=== PATIENT | female | born 1975 | race Caucasian/White ===

== ENCOUNTER 2018-12-19 05:37 | Observation (INO) | payer BC ==
[2018-12-19] MEDS ORDERED: LR 1,000 ML IV ONE (06:13)
[2018-12-19] MEDS ORDERED: ACETAMINOPHEN 500 MG TAB PO PRN ×2 (07:07→18:38)
[2018-12-19] MEDS ORDERED: MIDAZOLAM 2 MG/2 ML VIAL IVP ONE (07:07)
[2018-12-19] MEDS ORDERED: NALOXONE HCL 0.4 MG/ML INJ IVP PRN ×2 (07:07)
[2018-12-19] MEDS ORDERED: DEXAMETHASONE 4 MG/ML VIAL IVP PRN (07:07)
[2018-12-19] MEDS ORDERED: oxyCODONE IR 5 MG TAB PO PRN (07:07)
[2018-12-19] MEDS ORDERED: ONDANSETRON 4 MG/2 ML VIAL IVP PRN ×2 (07:07)
[2018-12-19] MEDS ORDERED: ALBUTEROL 3 ML DEYVIAL IH PRN (07:07)
--- NOTE | 2018-12-19 07:08 | PDANEPAE ---
ANE History of Present Illness TVH ANE Past Medical History - Cardiovascular History Hx Hypertension: No Hx Arrhythmias: No Hx Chest Pain: No Hx Coronary Artery / Peripheral Vascular Disease: No Hx CHF / Valvular Disease: No Hx Palpitations: No - Pulmonary History Hx COPD: No Hx Asthma/Reactive Airway Disease: No Hx Recent Upper Respiratory Infection: No Hx Oxygen in Use at Home: No Hx Sleep Apnea: No Sleep Apnea Screening Result - Last Documented: Negative - Neurologic History Hx Cerebrovascular Accident: No Hx Seizures: No Hx Dementia: No - Endocrine History Hx Diabetes: No Endocrine History Comment: RECENT DX HYPOTHYROID. TO ADDRESS POST SURGERY - Renal History Hx Renal Disorders: Yes Renal History Comment: PROLAPSED BLADDER. WITH SOME LEAKAGE - Liver History Hx Hepatic Disorders: No - Neurological & Psychiatric Hx Hx Neurological and Psychiatric Disorders: No - Cancer History Hx Cancer: No - Congenital Disorder History Hx Congenital Disorders: No - GI History Hx Gastrointestinal Disorders: No - Other Health History Other Health History: UTERINE FIBROID. DYSMENORRHEA - Chronic Pain History Chronic Pain: Yes (ABDOMEN) - Surgical History Prior Surgeries: DIAG LAP REMVL OF OVARIAN CYSTS. TONSILLECTOMY. . WISDOM TEETH ANE Review of Systems Review of Systems: - Exercise capacity METS (RN): 5 METS ANE Patient History - Allergies Allergies/Adverse Reactions: Sulfa (Sulfonamide Antibiotics) Allergy (Verified 11/21/18 09:14) DIARRHEA,VOMITING,DEHYDRATION - Home Medications Home Medications: Herbals/Supplements -Info Only 1 ea PO DAILY 11/21/18 [Last Taken 12/18/18] Ibuprofen [Motrin (*)] 200 mg PO DAILY PRN 12/07/18 [Last Taken 12/12/18] Melatonin [Melatonin 3 MG (*)] 3 mg PO HS 12/07/18 [Last Taken 12/18/18] Multivitamins [Multivitamin (*)] 1 each PO DAILY 12/07/18 [Last Taken 12/09/18] Vitamin B Complex [Vitamin B Complex (OTC)] 1 each PO DAILY 12/07/18 [Last Taken 12/09/18] - NPO status NPO Since - Liquids (Date): 12/18/18 NPO Since - Liquids (Time): 21:00 NPO Since - Solids (Date): 12/18/18 NPO Since - Solids (Time): 19:30 - Smoking Hx Smoking Status: Never smoked ANE Labs/Vital Signs - Vital Signs Blood Pressure: 96/66 Heart Rate: 55 Respiratory Rate: 20 O2 Sat (%): 97 Height: 162.56 cm Weight: 49.895 kg ANE Physical Exam - Airway Neck exam: FROM Mallampati Score: Class 2 Mouth exam: normal dental/mouth exam - Pulmonary Pulmonary: clear to auscultation - Cardiovascular Cardiovascular: regular rate and rhythym - ASA Status ASA Status: I ANE Anesthesia Plan Anesthesia Plan: general endotracheal anesthesia, spinal
[2018-12-19] MEDS ORDERED: BUPIVACAINE 0.25% 30 ML SDV ONE (07:12)
[2018-12-19] MEDS ORDERED: morphINE PF 5 MG/10 ML INJ ONE (07:13)
[2018-12-19] MEDS ORDERED: PROPOFOL 200 MG/20 ML VIAL ONE (07:13)
[2018-12-19] MEDS ORDERED: MIDAZOLAM 2 MG/2 ML VIAL ONE (07:14)
[2018-12-19] MEDS ORDERED: ONDANSETRON 4 MG/2 ML VIAL ONE ×2 (07:14→09:28)
[2018-12-19] MEDS ORDERED: ROCURONIUM 50 MG/5 ML VIAL ONE (07:14)
[2018-12-19] MEDS ORDERED: DEXAMETHASONE 4 MG/ML VIAL ONE ×2 (07:14→09:59)
[2018-12-19] MEDS ORDERED: ceFAZolin 2 GM/DEXTROSE 100 ML IV ONE (07:28)
[2018-12-19] MEDS ORDERED: VASOPRESSIN 20 UNIT/ML VIAL ONE (07:29)
--- NOTE | 2018-12-19 07:29 | PDHPUP ---
History & Physical Update H&P update statement: This history and physical update is based on an assessment of the patient which was completed after admission or registration (within 24 hours), but prior to the surgery/procedure. H&P update: H&P reviewed & patient examined, no change in patient's condition since H&P completed
[2018-12-19] MEDS ORDERED: fentaNYL 100 MCG/2 ML INJ ONE ×3 (08:12→10:32)
--- NOTE | 2018-12-19 09:19 | POSTANESTH ---
Post Anesthetic Evaluation Cardiovascular Status: Normal, Stable Respiratory Status: Normal, Stable Level of Consciousness/Mental Status: Can Participate in Eval, Mildly Sleepy, Arousable Pain Control: Adequate, Prn Tx Ordered Nausea/Vomiting Control: Adequate, Prn Tx Ordered Complications Possibly Related to Anesthesia: None Noted
[2018-12-19] MEDS ORDERED: KETOROLAC 30 MG/1 ML SDV IVP ONE (09:26)
--- NOTE | 2018-12-19 09:26 | POSTOPPROG ---
Post Op Note Date of Operation: 12/19/18 Surgeon: Sienna Abarca Medical Receptionist: Bhavin RUSS Anesthesiologist: Leighton Peterson Anesthesia: LMA, Spinal Pre-op Diagnosis: DUB, fibroids Post-op Diagnosis: same Indication: same Procedure: TVH/BS Findings: slightly enlarged uterus, nl tubes and ovaries Inf/Abcess present in the surg proc area at time of surgery?: No EBL: 50-100 Complications: none
[2018-12-19] MEDS ORDERED: D5W LR 1,000 ML IV SCH (09:30)
[2018-12-19] MEDS: fentaNYL 100 MCG/2 ML INJ IVP PRN ×3 (09:46→10:34)
[2018-12-19] MEDS: HYDROmorphONE/DILAUDID 1 MG/ML INJ IVP PRN ×2 (09:48→10:14)
[2018-12-19] MEDS ORDERED: HYDROmorphONE/DILAUDID 1 MG/ML INJ ONE (09:48)
--- NOTE | 2018-12-19 11:11 | GOP ---
[f rep st] OPERATIVE REPORT DATE OF OPERATION: 12/19/2018 SURGEON: Sienna Abarca MD BULL FLOAT FINISHER: Bhavin Saldivar, [facility]. ANESTHESIA: Spinal morphine for postop pain control and general with LMA. ANESTHESIOLOGIST: Leighton Peterson DO PREOPERATIVE DIAGNOSIS: Menorrhagia, dysmenorrhea, and submucosal uterine fibroid. POSTOPERATIVE DIAGNOSIS: Menorrhagia, dysmenorrhea, and submucosal uterine fibroid. PROCEDURE PERFORMED: Total vaginal hysterectomy with bilateral salpingectomies. FINDINGS: Cervix normal in appearance, uterus slightly enlarged in appearance, bilateral fallopian t ubes normal and ovaries normal. ESTIMATED BLOOD LOSS: 50 to 100 cc. INDICATIONS: Patient is a 43-year-old, G2, P2, on nothing for control, and last menstrual cycl e was 12/11/2018. Has over the last couple years developed very heavy and painful menstrual cycles. Ultrasound sonohysterogram showed a 2.5 cm completely submucosal fibroid. We initially planned to m ove forward with hysteroscopic resection and NovaSure ablation. However, she now prefers definitive therapy, so will proceed with vaginal hysterectomy. DESCRIPTION OF PROCEDURE: With informed consent signed, patient taken to the operating room and plac ed under spinal then general anesthesia. Placed in the high dorsal lithotomy position, prepped and d raped in the usual sterile fashion and Schumacher catheter placed. Two tenacula placed on the cervix for traction, and a weighted speculum placed in the posterior vaginal vault. Posterior colpotomy perform ed using sharp scissors entering the posterior cul-de-sac. The posterior vaginal mucosal edge was ap proximated to the peritoneum in a running baseball stitch for hemostatic purposes. Next, the uterosa cral ligament was clamped, cut on the left and Mathieu suture ligated and tagged. Same with the right . Cardinal ligaments on each side were clamped, cut, suture ligated and cut. The uterine vessels on each side were clamped, cut, and these were approximately 2 to 3 different clamps and cuttings to get all the uterine vessels. Next, the anterior peritoneum was opened sharply, and the anterior-posteri or approximated together and then clamped, cut, suture ligated, and then the utero-ovarian ligaments were clamped, cut and Mathieu suture ligated. The fallopian tube on the right was identifie d and grasped with the Mathieu clamps, completely transected, and handed off for specimen; and then th e left fallopian tube was also transected and for specimen. Both sides were hemostatic. Attention turned to closure. So, the pedicles were all noted to be hemostatic. Ebonie culdoplasty d one placing a suture into the 6 o'clock position of the vaginal mucosa, grasping the left uterosacral ligament. Several bites of the posterior peritoneum, right uterosacral ligament and then back out t he entry point. This was tied down obliterating the cul-de-sac, and then the vaginal cuff was closed with [id number] sutures; a little cautery down to the vaginal cuff just due to a few little ble eding areas. Patient was then placed in the supine position, awakened in the operating room, taken t o recovery room, tolerating the procedure well. COMPLICATIONS: None. Copy requested to: [facility] /[id number]/MODL
[2018-12-19] MEDS: KETOROLAC 30 MG/1 ML SDV IVP SCH ×2 (15:50→21:48)
[2018-12-19] MEDS ORDERED: PROMETHAZINE HCL 25 MG/ML INJ IV ONE (18:45)
[2018-12-20] MEDS: KETOROLAC 30 MG/1 ML SDV IVP SCH ×2 (04:02→10:16)
[2018-12-20 10:13] VITALS: BP 97/64
--- NOTE | 2018-12-20 10:41 | SOAPPROG ---
SOAP Progress Note Assessment/Plan: Assessment:POD #1 s/p TVH/BS doing well , theresa regular dies and pos flatus and nl urinary function , pain control with tylenol and toradol, wants to go home Plan:D/C home f/u in 1-2 weeks , d/c instructions given , rx for tramadol and zofran 12/20/18 10:38 Subjective: had a good night and pain is better and nausea gone , not much bleeding Objective: abd -soft pos BS not distended lungs CTA perineum min blood Vital Signs Temp Pulse Resp BP Pulse Ox 36.7 C 58 L 16 97/64 L 96 12/20/18 08:00 12/20/18 08:00 12/20/18 08:00 12/20/18 08:00 12/20/18 08:00 Laboratory Results 12/20/18 04:15 12/19/18 12/20/18 12/21/18 05:59 05:59 05:59 Intake Total 3112 Output Total 2450 Balance 662 ICD10 Worksheet Patient Problems: Problems Problem Status Onset Postop check Acute - ICD10 Problem Qualifiers (1) Postop check
== END 2018-12-20 11:15 | disposition home or self-care (01) ==
LOC: F3E 05:37 → FOB 11:15
PROVIDERS: ADMIT Obstetrics & Gynecology Gynecology; ATTEND Obstetrics & Gynecology Gynecology
PROC: 3E0S3NZ Introduction of Analgesics, Hypnotics, Sedatives into Epidural Space, Percutaneous Approach (ICD-10-PCS; principal; 2018-12-19 07:30)
PROC: 0UT77ZZ Resection of Bilateral Fallopian Tubes, Via Natural or Artificial Opening (ICD-10-PCS; principal; 2018-12-19 07:30)
PROC: 0UTC7ZZ Resection of Cervix, Via Natural or Artificial Opening (ICD-10-PCS; principal; 2018-12-19 07:30)
PROC: 0UT97ZZ Resection of Uterus, Via Natural or Artificial Opening (ICD-10-PCS; principal; 2018-12-19 07:30)
DX: D25.0 Submucous leiomyoma of uterus (principal); N92.0 Excessive and frequent menstruation with regular cycle; N94.5 Secondary dysmenorrhea; E03.9 Hypothyroidism, unspecified
CPT/HCPCS: 58262; G0378; J1100; J1170; J1885; J2250; J2274; J2405; J2550; J2704; J3010